=== PATIENT | female | born 1970 | race Caucasian/White ===

== ENCOUNTER 2018-06-19 19:46 | Emergency (ER) | payer OTHER ==
[2018-06-19 20:14] LABS: Bilirubin Negative (Negative); Blood, Urine Large (Negative); Glucose, Urine (Dipstick) Negative (Negative); Leukocyte Small (Negative); Nitrite Positive (Negative); Protein, Urine (Dipstick) > or equal to 300 mg/dL (Neg-Trace); Urobilinogen 0.2 mg/dL (0.2-1.0); pH, Urine 5.5 (5.0-9.0)
[2018-06-19 20:15] LABS: Clarity Cloudy (Clear)
[2018-06-19 20:16] LABS: Specific Gravity, Urine 1.024 (1.005-1.030)
[2018-06-19 20:18] LABS: Bacteria/HPF 2+ HPF (None Seen); RBC/HPF GREATER THAN 50-TNTC HPF (0-3); Squamous Epithelial 0-3 HPF (0-3)
[2018-06-19] MEDS ORDERED: HYDROcodone/Acetaminophen 10/325 mg Tablet ONE (20:19)
[2018-06-19] MEDS ORDERED: Promethazine 25 MG TAB ONE (20:20)
[2018-06-19] MEDS ORDERED: Phenazopyridine HCl 97.5 MG TABLET ONE (20:23)
== END 2018-06-19 20:57 | disposition home or self-care (01) ==
LOC: MADERS 19:46
DX: N39.0 Urinary tract infection, site not specified (principal); I10 Essential (primary) hypertension; E78.5 Hyperlipidemia, unspecified; F17.210 Nicotine dependence, cigarettes, uncomplicated
CPT/HCPCS: 81003; 81015; 99283